=== PATIENT | male | born 1970 | race Caucasian/White ===

== ENCOUNTER 2025-02-23 17:02 | Emergency (ER) | payer OTHER, SELFPAY ==
[2025-02-23 17:03] VITALS: BP 131/72; PULSE 72; RESP 16; TEMP 36.6; O2SAT 100; BMI 26.9
--- NOTE | 2025-02-23 17:23 | EKG12_ITS ---
Test Reason : FALL Blood Pressure : */* mmHG Vent. Rate : 51 BPM Atrial Rate : 51 BPM P-R Int : 148 ms QRS Dur : 82 ms QT Int : 410 ms P-R-T Axes : 64 60 61 degrees QTcB Int : 377 ms Sinus bradycardia Otherwise normal ECG Confirmed by LELAND ROONEY, BELEN ([id number]), manager editorial TJ KAPLAN ([id number]) on 02/26/2025 7:39:06 AM Referred By: Confirmed By: BELEN HA MD
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
[2025-02-23] MEDS: 0.9% Normal Saline (1000mL) 1,000 ML 999 ML IV (17:38)
[2025-02-23 17:50] LABS: Hematocrit 44.7 % (40-54); Hemoglobin 14.6 g/dL (13.0-16.5); Immature Granulocytes Count 0.090 X10^3/uL (0.0-0.0); Mean Corp Hgb Conc 32.7 g/dL (32-36); Mean Corpuscular Volume 88.7 fL (80-94); Mean Platelet Vol. 8.8 fl (6.2-12.0); NRBC Flagged by Analyzer 0 % (0-5); Platelet Count 369 K/mm3 (150-450); RBC Distribution Width CV 13.6 % (11.6-14.6); RBC Distribution Width SD 44.4 fl (35.1-43.9); Red Blood Count 5.04 M/mm3 (4.6-6.2); White Blood Count 18.7 K/mm3 (4.4-11.0)
--- NOTE | 2025-02-23 17:50 | CT_ITS ---
PROCEDURE: CT CHEST, ABD, PEL W/CONTRAST 02/23/2025 REASON FOR EXAM: LEFT RIB PAIN TECHNIQUE: Chest, abdomen and pelvis CT with intravenous contrast. Coronal and Sagittal reconstruction series were provided. One or more dose reduction techniques were used (e.g., Automated exposure control, adjustment of the mA and/or kV according to patient size, use of iterative reconstruction technique. CONTRAST: Isovue-300 VOLUME: 100mL FINDINGS: Inspection of the lung parenchyma demonstrates a small left-sided pneumothorax. Normal clavicles. Normal scapula. Nondisplaced fracture posterior left 5th rib. Fracture of the left 6th rib is also present. Displaced fracture left 7th rib and 8th rib. The 7th or 8th rib may be fractured in 2 [address]. Loculated pneumothorax left apex and left base. Sagittal reconstructions demonstrates normal thoracic vertebral body height and alignment. No subluxation or compression deformity. Normal axilla. Normal chest wall. No aortic injury. No mediastinal hemorrhage. No pericardial fluid No injury to the liver, gallbladder or spleen. No adrenal, renal or pancreatic injury. No bowel injury or free fluid. Bladder contour normal. No pelvic fracture. CT/CT Chest, Abd, Pel w/Contrast IMPRESSION: Left rib fractures with left-sided pneumothorax. A reading will be called. Reading Location[facility]
[2025-02-23 18:09] LABS: AST(SGOT) 23 U/L (<=37); Alanine Aminotransfer ALT/SGPT 25 U/L (<=46); Albumin, Serum 4.2 g/dL (3.5-5.0); Alkaline Phosphatase 92 U/L (40-129); Anion Gap 11 (5-15); BUN 18 mg/dL (4-19); BUN/Creat Ratio 17.5 RATIO (10-20); Bilirubin, Direct 0.14 mg/dL (0.00-0.30); Calcium,Total 9.3 mg/dL (7.6-11.0); Carbon Dioxide 24.1 mmol/L (21.0-32.0); Chloride 103 mmol/L (98-108); Estimated Creatinine Clearance 89.81 ml/min (50-250); Globulin 3.3 g/dL (2.2-4.2); Glucose 121 mg/dL (70-99); Potassium 4.2 mmol/L (3.3-5.1)
--- NOTE | 2025-02-23 18:42 | CT_ITS ---
PROCEDURE: SPINE CERVICAL WITHOUT CONTRAS 02/23/2025 REASON FOR EXAM: FALL TECHNIQUE: Procedure Code: CTSPC Modality: CT Procedure: SPINE CERVICAL WITHOUT CONTRAS Coronal and Sagittal reconstruction series were provided. One or more dose reduction techniques were used (e.g., Automated exposure control, adjustment of the mA and/or kV according to patient size, use of iterative reconstruction technique. FINDINGS: Normal cervical vertebral body height and alignment. No subluxation. No compression deformity. No destructive osseous changes. Multilevel degenerative disc space narrowing is present. The odontoid process appears intact. The occipital condyles in the C1 ring are maintained. No destructive osseous changes are noted. No disruption of the pedicles or lamina is identified. No soft tissue masses are identified. CT/Spine Cervical without Contras IMPRESSION: Negative for fracture Reading Location[facility]
--- NOTE | 2025-02-23 18:42 | CT_ITS ---
PROCEDURE: BRAIN/HEAD WITHOUT CONTRAST 02/23/2025 REASON FOR EXAM: FALL TECHNIQUE: Procedure Code: CTBR Modality: CT Procedure: BRAIN/HEAD WITHOUT CONTRAST Coronal and Sagittal reconstruction series were provided. One or more dose reduction techniques were used (e.g., Automated exposure control, adjustment of the mA and/or kV according to patient size, use of iterative reconstruction technique. COMPARISON: None available. FINDINGS: There is no extra-axial or intra-axial intracranial hemorrhage. No mass effect or midline shift is seen. The ventricles, sulci, and cisterns are normal in size and shape for the patient's age. There is normal laura-white matter differentiation. The posterior fossa is grossly unremarkable. The skull is unremarkable. Visualized paranasal sinuses are clear. The mastoid air cells show normal translucency. CT/Brain/Head without Contrast IMPRESSION: No intracranial hemorrhage. No mass effect or midline shift. Reading [facility]
[2025-02-23 19:02] VITALS: BP 124/73; PULSE 60; RESP 13; O2SAT 100
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
[2025-02-23 19:58] VITALS: BP 135/79; PULSE 59; RESP 18; TEMP 36.6; O2SAT 100
== END 2025-02-23 20:04 | disposition other institution (70) ==
PROVIDERS: Emergency Provider Emergency Medicine; PCP Family Medicine; Visit Provider Emergency Medicine
DX: S27.0XXA Traumatic pneumothorax, initial encounter (principal); S22.42XA Multiple fractures of ribs, left side, initial encounter for closed fracture; Y93.55 Activity, bike riding; V89.0XXA Person injured in unspecified motor-vehicle accident, nontraffic, initial encounter
CPT/HCPCS: 70450; 71260; 72125; 74177; 80048; 80076; 85025; 93005; 96361; 96374; 96375; 96376; 99284; Q9967; A4216; J2405